=== PATIENT | male | born 1985 | race African-American/Black ===

== ENCOUNTER 2017-01-28 13:22 | Emergency (ER) | payer BC, OTHER ==
[~2017-01-28] VITALS: Ht 182.9 cm; Wt 96.0 kg
[~2017-01-28 13:22] MED LIST: HYDR12.56 PO; LISI-515 PO
[2017-01-28 13:24] VITALS: BP 204/148; PULSE 77; RESP 15; TEMP 98.8; O2SAT 98
[2017-01-28 13:44] VITALS: BP 214/136; PULSE 76; RESP 20; O2SAT 95
[2017-01-28 13:56] VITALS: BP 237/134; PULSE 80; RESP 18; O2SAT 98
[2017-01-28] MEDS ORDERED: ONDANSETRON HCL 4 MG/2 ML VIAL IV PUSH ONE (14:00)
[2017-01-28] MEDS ORDERED: cloNIDine HCL 0.2 MG TAB PO ONE (14:00)
[2017-01-28] MEDS ORDERED: HYDROmorphone HCL PF 1 MG/ML VIAL IV PUSH ONE (14:00)
--- NOTE | 2017-01-28 14:04 | PD ---
HPI Chief Complaint: ENT Complaint Time Seen by Provider: 13:43 Travel History International Travel<30 days: No Contact w/Intl Traveler<30days: No Traveled to known affect area: No History of Present Illness HPI This 31-year-old male is complaining of sore throat. He went to an urgent care center and they put him on antibiotics but noted that he had very high blood pressure and recommended that he come here. Patient has a long history of hypertension since he age of 23. He has been on medications at time the past but has not been on them recently. He denies chest pain or shortness of breath. PFSH Past Medical History Cardiovascular Problems: Yes (HTN) Diminished Hearing: No Hypertension: Yes (UNTREATED) Immunizations Current: No Influenza Vaccination: No ?: Not Past Surgical History Surgical History: No Previous Surgery Social History Alcohol Use: No Tobacco Use: No Substance Use: No Allergies-Medications (Allergen,Severity, Reaction): Coded Allergies: No Known Allergies (Unverified , 01/28/17) Reported Meds & Prescriptions Reported Meds & Active Scripts Active No Active Prescriptions or Reported Medications Review of Systems General / Constitutional: No: Fever Eyes: No: Diploplia HENT: Positive: Sore Throat, No: Headaches Cardiovascular: No: Chest Pain or Discomfort, Palpitations Respiratory: No: Cough, Shortness of Breath Gastrointestinal: No: Nausea, Vomiting Genitourinary: No: Urgency, Frequency Musculoskeletal: No: Myalgias, Arthralgias Skin: No Rash, No Itching Neurologic: No: Weakness Hematologic/Lymphatic: No: Easy Bruising Physical Exam Narrative GENERAL: Well-developed male blood pressure is 225/115 SKIN: Focused skin assessment warm/dry. HEAD: Atraumatic. Normocephalic. EYES: Pupils equal and round. No scleral icterus. No injection or drainage. ENT: No nasal bleeding or discharge. Mucous membranes pink and moist. Posterior pharynx is erythematous NECK: Trachea midline. No JVD. CARDIOVASCULAR: Regular rate and rhythm. No murmur appreciated. RESPIRATORY: No accessory muscle use. Clear to auscultation. Breath sounds equal bilaterally. GASTROINTESTINAL: Abdomen soft, non-tender, nondistended. Hepatic and splenic margins not palpable. MUSCULOSKELETAL: No obvious deformities. No clubbing. No cyanosis. No edema. NEUROLOGICAL: Awake and alert. No obvious cranial nerve deficits. Motor grossly within normal limits. Normal speech. PSYCHIATRIC: Appropriate mood and affect; insight and judgment normal. Data Data Last Documented VS Vital Signs Date Time Temp Pulse Resp B/P Pulse Ox O2 Delivery O2 Flow Rate FiO2 01/28/17 15:04 78 18 237/122 96 Room Air 01/28/17 13:24 98.8 Orders Complete Blood Count With Diff (01/28/17 13:58) Basic Metabolic Panel (Bmp) (01/28/17 13:58) Ua Includes Microscopic (01/28/17 13:58) Clonidine (Catapres) (01/28/17 14:00) Ondansetron Inj (Zofran Inj) (01/28/17 14:00) Hydromorphone Pf Inj (Dilaudid Pf Inj) (01/28/17 14:00) Clonidine (Catapres) (01/28/17 15:15) Amlodipine (Norvasc) (01/28/17 15:15) Labs Laboratory Tests Test 01/28/17 01/28/17 14:08 14:19 White Blood Count 6.3 TH/MM3 Red Blood Count 4.67 MIL/MM3 Hemoglobin 13.5 GM/DL Hematocrit 40.8 % Mean Corpuscular Volume 87.4 FL Mean Corpuscular Hemoglobin 29.0 PG Mean Corpuscular Hemoglobin 33.2 % Concent Red Cell Distribution Width 13.8 % Platelet Count 180 TH/MM3 Mean Platelet Volume 8.9 FL Neutrophils (%) (Auto) 65.6 % Lymphocytes (%) (Auto) 20.1 % Monocytes (%) (Auto) 10.7 % Eosinophils (%) (Auto) 3.1 % Basophils (%) (Auto) 0.5 % Neutrophils # (Auto) 4.1 TH/MM3 Lymphocytes # (Auto) 1.3 TH/MM3 Monocytes # (Auto) 0.7 TH/MM3 Eosinophils # (Auto) 0.2 TH/MM3 Basophils # (Auto) 0.0 TH/MM3 CBC Comment DIFF FINAL Differential Comment Sodium Level 142 MEQ/L Potassium Level 3.4 MEQ/L Chloride Level 105 MEQ/L Carbon Dioxide Level 29.9 MEQ/L Anion Gap 7 MEQ/L Blood Urea Nitrogen 20 MG/DL Creatinine 1.70 MG/DL Estimat Glomerular Filtration 58 ML/MIN Rate Random Glucose 96 MG/DL Calcium Level 9.0 MG/DL Urine Collection Type CLEAN CATCH Urine Color YELLOW Urine Turbidity CLEAR Urine pH 6.0 Urine Specific [place] 1.015 Urine Protein 100 mg/dL Urine Glucose (UA) NEG mg/dL Urine Ketones NEG mg/dL Urine Occult Blood NEG Urine Nitrite NEG Urine Bilirubin NEG Urine Leukocyte Esterase NEG Urine RBC 0-3 /hpf Urine WBC 0-2 /hpf Urine Squamous Epithelial 0-5 /hpf Cells Urine Collection Time 14:19 MDM Medical Decision Making Medical Screen Exam Complete: Yes Emergency Medical Condition: Yes Medical Record Reviewed: Yes Differential Diagnosis Differential includes hypertension, renal insufficiency, Narrative Course Lab work was checked. He does have some renal insufficiency which has been present on previous visits. He has been given clonidine 0.2 with minimal response. Subsequently been given 0.1 of clonidine and 10 mg of Norvasc. Again there has been minimal response. Further treatment and disposition will be determined by oncoming physician Diagnosis Primary Impression: Hypertension Scripts No Active Prescriptions or Reported Meds Donald Cobian MD January 28, 2017 14:04
[2017-01-28 14:14] LABS: AUTOMATED NEUTROPHIL # 4.1 TH/MM3 (1.8-7.7); BASOPHIL % 0.5 % (0.0-2.0); EOSINOPHIL # 0.2 TH/MM3 (0-0.4); EOSINOPHIL % 3.1 % (0.0-4.0); HEMATOCRIT 40.8 % (39.0-51.0); HEMO FLAGS DIFF FINAL; LYMPH % 20.1 % (9.0-44.0); LYMPHOCYTE # 1.3 TH/MM3 (1.0-4.8); MEAN CELL VOLUME 87.4 FL (80.0-100.0); MEAN CORPUSCULAR HGB CONC 33.2 % (32.0-36.0); MONO % 10.7 % (0.0-8.0); NEUT % 65.6 % (16.0-70.0); PLATELET COUNT 180 TH/MM3 (150-450); RED BLOOD COUNT 4.67 MIL/MM3 (4.50-5.90); RED CELL DISTRIBUTION WIDTH 13.8 % (11.6-17.2); WHITE BLOOD COUNT 6.3 TH/MM3 (4.0-11.0)
[2017-01-28 14:25] LABS: BLOOD, URINE NEG (NEG); GLUCOSE,URINE NEG (NEG); KETONE, URINE NEG (NEG); NITRITE,URINE NEG (NEG)
[2017-01-28 14:26] LABS: POTASSIUM 3.4 MEQ/L (3.5-5.1)
[2017-01-28 14:29] LABS: BICARBONATE 29.9 MEQ/L (21.0-32.0)
[2017-01-28 14:34] LABS: METHOD OF COLLECTION CLEAN CATCH; RBC, URINE 0-3 /hpf (0-3); SQUAMOUS EPITHELIAL CELL URINE 0-5 /hpf (0-5); URINE COLOR YELLOW (YELLW/STRAW); WBC, URINE 0-2 /hpf (0-5)
[2017-01-28 15:04] VITALS: BP 237/122; PULSE 78; RESP 18; O2SAT 96
[2017-01-28] MEDS ORDERED: cloNIDine HCL 0.1 MG TAB PO ONE (15:15)
[2017-01-28] MEDS ORDERED: niCARdipine INJ 25 MG in SODIUM CHLOR 0.9% 250 ML INJ 250 ML IV SCH (16:15)
[2017-01-28 16:21] VITALS: BP 179/115; PULSE 70; RESP 18; O2SAT 99
[2017-01-28] MEDS ORDERED: LIDOCAINE VISCOUS 2% SOLN 15 ML UDC PO ONE (16:30)
[2017-01-28] MEDS ORDERED: hydrALAZINE HCL 25 MG TAB PO ONE (16:30)
[2017-01-28] MEDS ORDERED: ALUMINUM/MAGNESIUM/SIMETH 30 ML CUP PO ONE (16:30)
[2017-01-28] MEDS ORDERED: HYDR25TA5 PO (17:17)
[2017-01-28] MEDS ORDERED: LISI-515 PO (17:17)
[2017-01-28] MEDS ORDERED: [UNRECOGNIZED DRUG - OTHER] PO (17:21)
--- NOTE | 2017-01-28 17:22 | PD ---
Data Data Last Documented VS Vital Signs Date Time Temp Pulse Resp B/P Pulse Ox O2 Delivery O2 Flow Rate FiO2 01/28/17 16:21 70 18 179/115 99 Room Air 01/28/17 13:24 98.8 Orders Complete Blood Count With Diff (01/28/17 13:58) Basic Metabolic Panel (Bmp) (01/28/17 13:58) Ua Includes Microscopic (01/28/17 13:58) Clonidine (Catapres) (01/28/17 14:00) Ondansetron Inj (Zofran Inj) (01/28/17 14:00) Hydromorphone Pf Inj (Dilaudid Pf Inj) (01/28/17 14:00) Clonidine (Catapres) (01/28/17 15:15) Amlodipine (Norvasc) (01/28/17 15:15) Nicardipine Inj (Cardene Inj) (01/28/17 16:15) Hydralazine (Apresoline) (01/28/17 16:30) Al-Mag Hy-Si 40-40-4 Mg/Ml Liq (Mag-Al P (01/28/17 16:30) Lidocaine 2% Viscous (Xylocaine 2% Visco (01/28/17 16:30) Acetamin-Hydrocod 325-5 Mg ([place] 5-325 (01/28/17 17:30) Labs Laboratory Tests Test 01/28/17 01/28/17 14:08 14:19 White Blood Count 6.3 TH/MM3 Red Blood Count 4.67 MIL/MM3 Hemoglobin 13.5 GM/DL Hematocrit 40.8 % Mean Corpuscular Volume 87.4 FL Mean Corpuscular Hemoglobin 29.0 PG Mean Corpuscular Hemoglobin 33.2 % Concent Red Cell Distribution Width 13.8 % Platelet Count 180 TH/MM3 Mean Platelet Volume 8.9 FL Neutrophils (%) (Auto) 65.6 % Lymphocytes (%) (Auto) 20.1 % Monocytes (%) (Auto) 10.7 % Eosinophils (%) (Auto) 3.1 % Basophils (%) (Auto) 0.5 % Neutrophils # (Auto) 4.1 TH/MM3 Lymphocytes # (Auto) 1.3 TH/MM3 Monocytes # (Auto) 0.7 TH/MM3 Eosinophils # (Auto) 0.2 TH/MM3 Basophils # (Auto) 0.0 TH/MM3 CBC Comment DIFF FINAL Differential Comment Sodium Level 142 MEQ/L Potassium Level 3.4 MEQ/L Chloride Level 105 MEQ/L Carbon Dioxide Level 29.9 MEQ/L Anion Gap 7 MEQ/L Blood Urea Nitrogen 20 MG/DL Creatinine 1.70 MG/DL Estimat Glomerular Filtration 58 ML/MIN Rate Random Glucose 96 MG/DL Calcium Level 9.0 MG/DL Urine Collection Type CLEAN CATCH Urine Color YELLOW Urine Turbidity CLEAR Urine pH 6.0 Urine Specific [place] 1.015 Urine Protein 100 mg/dL Urine Glucose (UA) NEG mg/dL Urine Ketones NEG mg/dL Urine Occult Blood NEG Urine Nitrite NEG Urine Bilirubin NEG Urine Leukocyte Esterase NEG Urine RBC 0-3 /hpf Urine WBC 0-2 /hpf Urine Squamous Epithelial 0-5 /hpf Cells Urine Collection Time 14:19 MDM Medical Record Reviewed: Yes Supervised Visit with ALPHONSO: No Narrative Course CBC & BMP Diagram 01/28/17 14:08 Urinalysis shows no UTI Diastolic hypertension has been observed with every single measurement since he first came here almost a year ago to the day. He is hypertension is more or less within range for him. We'll prescribe a 2 week course of antihypertensives. The patient was counseled in some detail and at some length regarding necessity of prompt follow-up and strict blood pressure control. Pt verbalized understanding though his primary concern was sore throat. Diagnosis Primary Impression: Hypertension Qualified Code: I10 - Essential hypertension Additional Impression: Pharyngitis Qualified Code: J02.9 - Pharyngitis, unspecified etiology Referrals: Jacey Strickland MD call for appointment Mark Catherine (Vladimir) call for appointment Additional Instruction: You have a choice when it comes to health care, and we are glad that you chose [facility]. Hopefully, we have met your expectations on today's visit. You are welcome to return to [facility] at any time, as we are committed to meeting the health care needs of our community. Med/Other Pt SpecificInfo: Prescription(s) given Scripts Hydrocodone-Acetaminophen Liq (Lortab Liq)10-300 Mg/15 Ml Elix15 Ml PO Q6H PRN ( SORE THROAT) #10 ML Ref 0 Prov:Venkata Hoffmann MD 01/28/17 Menthol Lozenge (Ricola Lozenge)1 Loz1 Lozenge PO Q3H PRN (SORE THROAT) #1 BOX Ref 0 Prov:Venkata Hoffmann MD 01/28/17 Hydrochlorothiazide 25 Mg Tab25 Mg PO DAILY #15 TAB Ref 0 Prov:Venkata Hoffmann MD 01/28/17 Lisinopril 20 Mg Tab20 Mg PO DAILY #15 TAB Ref 0 Prov:Venkata Hoffmann MD 01/28/17 Disposition: 01 DISCHARGE HOME Condition: Stable Venkata Hoffmann MD January 28, 2017 17:22
[2017-01-28] MEDS ORDERED: HYDR1ELX PO (17:26)
[2017-01-28 17:30] VITALS: BP 189/99; PULSE 87; RESP 18; O2SAT 99
[2017-01-28] MEDS ORDERED: ACETAMINOPHEN/HYDROcodone 325 MG/5 MG TAB PO ONE (17:30)
== END 2017-01-28 17:35 | disposition home or self-care (01) ==
LOC: PHED 13:22
DX: J02.9 Acute pharyngitis, unspecified (principal); I10 Essential (primary) hypertension
CPT/HCPCS: 80048; 81001; 85025; 96374; 96375; 99283; J1170; J2405

== ENCOUNTER 2017-04-20 23:14 | Emergency (ER) | payer OTHER ==
[~2017-04-20] VITALS: Ht 182.9 cm; Wt 95.5 kg
[~2017-04-20 23:14] MED LIST changes: -HYDR12.56 PO; +HYDR1ELX PO; +HYDR25TA5 PO; +[UNRECOGNIZED DRUG - OTHER] PO
[2017-04-20 23:16] VITALS: BP 183/113; PULSE 67; RESP 16; TEMP 98.4; O2SAT 98
--- NOTE | 2017-04-21 01:02 | PD ---
HPI Chief Complaint: Complaint Time Seen by Provider: 01:02 Travel History International Travel<30 days: No Contact w/Intl Traveler<30days: No Traveled to known affect area: No History of Present Illness HPI 31-year-old male presents to emergency department for evaluation of small bumps on his penis. Patient believes he may have an STD. He reports being in a monogamous relationship and not using condoms when he has intercourse with his girlfriend, but does not wish to share other experiences at this time. States about one week ago he had that he felt looked like a "Bonaparte" on the shaft of his penis but it was not painful. He states that it resolved on its own and now the skin is just slightly discolored. Denies any urinary symptoms. No penile discharge. No abdominal pain, nausea, vomiting. No fever or chills. He has no other symptoms to report. PFSH Past Medical History Medical History: Denies Significant Hx Diminished Hearing: No Hypertension: Yes (UNTREATED) Immunizations Current: No Social History Alcohol Use: No Tobacco Use: No Substance Use: No Allergies-Medications (Allergen,Severity, Reaction): Coded Allergies: No Known Allergies (Unverified , 01/28/17) Reported Meds & Prescriptions Reported Meds & Active Scripts Active Ricola Lozenge (Menthol Lozenge) 1 Fouzia 1 Lozenge PO Q3H PRN Hydrochlorothiazide 25 Mg Tab 25 Mg PO DAILY Lisinopril 20 Mg Tab 20 Mg PO DAILY Review of Systems Except as stated in HPI: all other systems reviewed are Neg Physical Exam Narrative GENERAL: Well-nourished, well-developed male patient in no acute distress SKIN: Focused skin assessment warm/dry. HEAD: Normocephalic. EYES: No scleral icterus. No injection or drainage. NECK: Supple, trachea midline. No JVD or lymphadenopathy. CARDIOVASCULAR: Regular rate and rhythm without murmurs, gallops, or rubs. RESPIRATORY: Breath sounds equal bilaterally. No accessory muscle use. GASTROINTESTINAL: Abdomen soft, non-tender, nondistended. GENITOURINARY: UNCircumcised. Testes descended bilaterally without evidence of rotation. MICRO papular lesions along the distal lateral aspect of the penile shaft. Near the base of the shaft on the left side is a lightened area that appears to be scar from the healed lesion that the patient was talking about that was painless that appeared last week. Or erythema. No urethral discharge. MUSCULOSKELETAL: No cyanosis, or edema. BACK: Nontender without obvious deformity. No CVA tenderness. Data Data Last Documented VS Vital Signs Date Time Temp Pulse Resp B/P Pulse Ox O2 Delivery O2 Flow Rate FiO2 04/20/17 23:16 98.4 67 16 183/113 98 Room Air Orders Gc And Chlamydia Pcr (04/21/17 01:02) Rapid Plasmin Reagin Screen (04/21/17 01:02) Herpes Simplex Virus Culture (04/21/17 01:02) Penicil G Steve Inj (Bicillin L-A Inj) (04/21/17 02:00) Labs Laboratory Tests Test 04/21/17 01:15 Chlamydia trachomatis DNA NOT DETECTED (PCR) Neisseria gonorrhoeae DNA NOT DETECTED (PCR) MDM Medical Decision Making Medical Screen Exam Complete: Yes Emergency Medical Condition: Yes Medical Record Reviewed: Yes Differential Diagnosis Herpes versus syphilis versus other STD versus contact dermatitis versus friction rub versus latex sensitivity Narrative Course 31-year-old male presents to emergency department for evaluation. Patient appears without distress. Physical exam is more consistent with a friction rub however pustules are concerning for herpes and in the patient's history of a painless sore or lesion grows concern for syphilis. GC PCR, herpetic micro-, and RPR all sent for further evaluation. Patient is counseled on safe sex practices. He agrees to return immediately with any acute worsening of symptoms. Diagnosis Primary Impression: Penile lesion Referrals: Primary Care Physician Patient Instructions: General Instructions, Safe Sex (ED), Syphilis (ED) Additional Instructions: It is recommended That you practice safe sex, utilize condom prophylaxis Follow-up with your primary care provider Return immediately with any acute worsening of symptoms Med/Other Pt SpecificInfo: No Change to Meds Disposition: 01 DISCHARGE HOME Condition: Stable GalindoPaola weeksmilan LIAO Apr 21, 2017 01:02
[2017-04-21] MEDS ORDERED: PENICILLIN G BENZATHINE 2,400,000 UNITS/4 ML SYRINGE IM ONE (01:15)
[2017-04-21] MEDS ORDERED: PENICILLIN G BENZATHINE 1,200,000 UNITS/2 ML SYRINGE IM ONE ×3 (01:15→01:45)
[2017-04-21] MEDS ORDERED: PENICIL G BENZ INJ 600,000 UNITS/ML SYR IM ONE (02:00)
[2017-04-21 12:05] LABS: CHLAMYDIA PCR NOT DETECTED (NOT DETECT); NEISSERIA PCR NOT DETECTED (NOT DETECT)
== END 2017-04-21 02:41 | disposition home or self-care (01) ==
LOC: NEPD 23:14
DX: L98.8 Other specified disorders of the skin and subcutaneous tissue (principal); I10 Essential (primary) hypertension; Z20.2 Contact with and (suspected) exposure to infections with a predominantly sexual mode of transmission
CPT/HCPCS: 86592; 87255; 87491; 87591; 96372; 99284; J0561

== ENCOUNTER 2017-04-28 18:45 | Emergency (ER) | payer OTHER ==
[~2017-04-28 18:45] MED LIST changes: -HYDR1ELX PO
[2017-04-28 18:47] VITALS: BP 221/108; PULSE 86; RESP 16; TEMP 98.5; O2SAT 98
[2017-04-28] MEDS ORDERED: VALT1TAB PO (19:19)
--- NOTE | 2017-04-28 19:20 | PD ---
HPI Chief Complaint: Medical Clearance Time Seen by Provider: 19:09 Travel History International Travel<30 days: No Contact w/Intl Traveler<30days: No Traveled to known affect area: No History of Present Illness HPI She is a 31-year-old male presents emergency department after he was called back for abnormal lab testing. Patient was seen here recently in emergency department with penile lesion. His laboratory test resulted positive for herpes simplex virus and he was called and told to return to the emergency department. Patient states that he has been feeling the same, the penile lesion is still there, unchanged. PFSH Past Medical History Diminished Hearing: No Hypertension: Yes (UNTREATED) Immunizations Current: No Social History Alcohol Use: No Tobacco Use: No Substance Use: No Allergies-Medications (Allergen,Severity, Reaction): Coded Allergies: No Known Allergies (Unverified , 01/28/17) Reported Meds & Prescriptions Reported Meds & Active Scripts Active Valtrex (Valacyclovir HCl) 1 Gm Tab 1,000 Mg PO TID Ricola Lozenge (Menthol Lozenge) 1 [place]ouzia 1 Lozenge PO Q3H PRN Hydrochlorothiazide 25 Mg Tab 25 Mg PO DAILY Lisinopril 20 Mg Tab 20 Mg PO DAILY Review of Systems Except as stated in HPI: all other systems reviewed are Neg Physical Exam Narrative GENERAL: Well-appearing male in no acute distress SKIN: Focused skin assessment warm/dry. HEAD: Normocephalic. EYES: No scleral icterus. No injection or drainage. ENT: Mucous membranes pink and moist. NECK: Supple CARDIOVASCULAR: Regular rate and rhythm. RESPIRATORY: No accessory muscle use. NEUROLOGICAL: Awake and alert. Normal speech. PSYCHIATRIC: Appropriate mood and affect; insight and judgment normal. Data Data Last Documented VS Vital Signs Date Time Temp Pulse Resp B/P Pulse Ox O2 Delivery O2 Flow Rate FiO2 04/28/17 18:47 98.5 86 16 221/108 98 MDM Medical Decision Making Medical Screen Exam Complete: Yes Emergency Medical Condition: Yes Medical Record Reviewed: Yes Differential Diagnosis 31-year-old male here for abnormal laboratory testing, positive herpes simplex virus from penile lesion culture. Narrative Course Patient informed of results. Given prescription for Valtrex. Notably hypertensive, has history of 4 drug HTN. Blood pressure normalized in ED, patient informed to follow-up with primary care provider for blood pressure recheck. 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 Follow-up with primary care provider in one week for blood pressure check. Med/Other Pt SpecificInfo: Prescription(s) given Scripts Valacyclovir (Valtrex)1 Gm Tab1,000 Mg PO TID #90 TAB Ref 0 Prov:Linda Veronica MD 04/28/17 Disposition: 01 DISCHARGE HOME Condition: Stable Linda Veronica MD Apr 28, 2017 19:20
[2017-04-28 19:38] VITALS: BP 174/114; PULSE 59; RESP 18; O2SAT 96
[2017-04-28] MEDS ORDERED: AMLO5TAB2 PO (19:39)
[2017-04-28] MEDS ORDERED: METO50TA PO (19:39)
== END 2017-04-28 20:00 | disposition home or self-care (01) ==
LOC: NEPE 18:45
DX: A60.01 Herpesviral infection of penis (principal); I10 Essential (primary) hypertension
CPT/HCPCS: 99283

== ENCOUNTER 2017-10-04 15:14 | Emergency (ER) | payer SELFPAY ==
[~2017-10-04] VITALS: Ht 182.9 cm; Wt 97.5 kg
[~2017-10-04 15:14] MED LIST changes: +AMLO5TAB2 PO; +METO50TA PO; +VALT1TAB PO; -[UNRECOGNIZED DRUG - OTHER] PO
[2017-10-04 15:15] VITALS: BP 227/139; PULSE 83; RESP 18; TEMP 99.1; O2SAT 97
[2017-10-04 16:01] LABS: AUTOMATED NEUTROPHIL # 1.8 TH/MM3 (1.8-7.7); BASOPHIL % 0.8 % (0.0-2.0); EOSINOPHIL # 0.2 TH/MM3 (0-0.4); EOSINOPHIL % 3.9 % (0.0-4.0); HEMATOCRIT 40.6 % (39.0-51.0); LYMPHOCYTE # 1.6 TH/MM3 (1.0-4.8); MEAN CELL VOLUME 89.1 FL (80.0-100.0); MEAN CORPUSCULAR HEMOGLOBIN 30.8 PG (27.0-34.0); MEAN CORPUSCULAR HGB CONC 34.6 % (32.0-36.0); MEAN PLATELET VOLUME 9.6 FL (7.0-11.0); MONO % 12.6 % (0.0-8.0); MONOCYTE # 0.5 TH/MM3 (0-0.9); NEUT % 44.7 % (16.0-70.0); PLATELET COUNT 152 TH/MM3 (150-450); RED BLOOD COUNT 4.56 MIL/MM3 (4.50-5.90); WHITE BLOOD COUNT 4.1 TH/MM3 (4.0-11.0)
[2017-10-04 16:13] LABS: INTERNATIONAL NORMALIZED RATIO 1.1 RATIO
[2017-10-04 16:24] LABS: TROPONIN I LESS THAN 0.02 NG/ML (0.02-0.05)
--- NOTE | 2017-10-04 16:25 | RADRPT ---
EXAM DATE/TIME: 10/04/2017 16:10 [facility] COMPARISON: No previous studies available for comparison. INDICATIONS : Chest pain and dyspnea. MEDICAL HISTORY : Hypertension. SURGICAL HISTORY : None. ENCOUNTER: Initial ACUITY: 1 day PAIN SCORE: 8/10 LOCATION: middle chest. FINDINGS: PA and lateral views of the chest demonstrate the lungs to be symmetrically aerated without evidence of mass, infiltrate or effusion. The cardiomediastinal contours are unremarkable. Osseous structure s are intact. CONCLUSION: No acute disease. Omar Mosqudea MD on October 04, 2017 at 16:22 Board Certified Radiologist. This report was verified electronically.
[2017-10-04 16:29] LABS: BICARBONATE 26.8 MEQ/L (21.0-32.0); BLOOD UREA NITROGEN 23 MG/DL (7-18); CALCIUM 8.8 MG/DL (8.5-10.1); CHLORIDE 106 MEQ/L (98-107); CREATININE 1.89 MG/DL (0.60-1.30); GLOMERULAR FILTRATION RATE 51 ML/MIN (>89); GLUCOSE,RANDOM 100 MG/DL (74-106); SODIUM (NA) 139 MEQ/L (136-145)
--- NOTE | 2017-10-04 17:51 | PD ---
HPI Chief Complaint: Chest Pain Stated Complaint: CHEST PAIN Time Seen by Provider: 17:48 Travel History International Travel<30 days: No Contact w/Intl Traveler<30days: No Known affected area: No History of Present Illness HPI 31 year old male presents tot he emergency department for evaluation of chest pain and shortness of breath. Patient states his chest pain radiates up the throat. Deep breathing exacerbates the pain, rest helps alleviate the pain. Current pain is 3/10. Moderate severity. History Social History Alcohol Use: No Tobacco Use: No Allergies-Medications (Allergen,Severity, Reaction): Coded Allergies: No Known Allergies (Unverified , 01/28/17) Reported Meds & Prescriptions Reported Meds & Active Scripts Active Valtrex (Valacyclovir HCl) 1 Gm Tab 1,000 Mg PO TID Hydrochlorothiazide 25 Mg Tab 25 Mg PO DAILY Lisinopril 20 Mg Tab 20 Mg PO DAILY Reported Amlodipine (Amlodipine Besylate) 5 Mg Tab 5 Mg PO DAILY Metoprolol Tartrate 50 Mg Tab 50 Mg PO BID Review of Systems Except as stated in HPI: all other systems reviewed are Neg Physical Exam Exam Limitations: Left AMA Narrative GENERAL: Well developed, well nourished male patient. Ambulatory. SKIN: Warm and dry. HEAD: Normocephalic. Atraumatic. EYES: No scleral icterus. No injection or drainage. RESPIRATORY: No accessory muscle use. MUSCULOSKELETAL: No cyanosis, or edema. Data Data Last Documented VS Vital Signs Date Time Temp Pulse Resp B/P (MAP) Pulse Ox O2 Delivery O2 Flow Rate FiO2 10/04/17 15:15 99.1 83 18 227/139 (168) 97 Room Air Orders Orders Electrocardiogram (10/04/17 15:21) Basic Metabolic Panel (Bmp) (10/04/17 15:21) Ckmb (Isoenzyme) Profile (10/04/17 15:21) Complete Blood Count With Diff (10/04/17 15:21) Magnesium (Mg) (10/04/17 15:21) Prothrombin Time / Inr (Pt) (10/04/17 15:21) Act Partial Throm Time (Ptt) (10/04/17 15:21) Troponin I (10/04/17 15:21) Chest, Pa & Lat (10/04/17 15:21) CKMB (10/04/17 15:26) CKMB% (10/04/17 15:26) Labs Laboratory Tests Test 10/04/17 15:26 White Blood Count 4.1 TH/MM3 Red Blood Count 4.56 MIL/MM3 Hemoglobin 14.0 GM/DL Hematocrit 40.6 % Mean Corpuscular Volume 89.1 FL Mean Corpuscular Hemoglobin 30.8 PG Mean Corpuscular Hemoglobin Concent 34.6 % Red Cell Distribution Width 14.0 % Platelet Count 152 TH/MM3 Mean Platelet Volume 9.6 FL Neutrophils (%) (Auto) 44.7 % Lymphocytes (%) (Auto) 38.0 % Monocytes (%) (Auto) 12.6 % Eosinophils (%) (Auto) 3.9 % Basophils (%) (Auto) 0.8 % Neutrophils # (Auto) 1.8 TH/MM3 Lymphocytes # (Auto) 1.6 TH/MM3 Monocytes # (Auto) 0.5 TH/MM3 Eosinophils # (Auto) 0.2 TH/MM3 Basophils # (Auto) 0.0 TH/MM3 CBC Comment DIFF FINAL Differential Comment Prothrombin Time 11.0 SEC Prothromb Time International Ratio 1.1 RATIO Activated Partial Thromboplast Time 27.1 SEC Blood Urea Nitrogen 23 MG/DL Creatinine 1.89 MG/DL Random Glucose 100 MG/DL Calcium Level 8.8 MG/DL Magnesium Level 2.0 MG/DL Sodium Level 139 MEQ/L Potassium Level 3.7 MEQ/L Chloride Level 106 MEQ/L Carbon Dioxide Level 26.8 MEQ/L Anion Gap 6 MEQ/L Estimat Glomerular Filtration Rate 51 ML/MIN Total Creatine Kinase 449 U/L Creatine Kinase MB 1.7 NG/ML Creatine Kinase MB % 0.4 % Troponin I LESS THAN 0.02 NG/ML MDM Medical Decision Making Medical Screen Exam Complete: Yes Emergency Medical Condition: Yes Medical Record Reviewed: Yes Narrative Course 31 year old male presents to the emergency department for evaluation of chest pain/shortness of breath. Patient is initially seen in triage. Patient left before he went back to a medical bed or further work up could be completed. Patient left AMA. Diagnosis Primary Impression: Left against medical advice Additional Impression: Chest pain Qualified Codes: R07.9 - Chest pain, unspecified Disposition: 07 AGAINST MEDICAL ADVICE Aamnda Wilcox Oct 04, 2017 17:51
[2017-10-05] MEDS ORDERED: AMLO5TAB2 PO (02:50)
[2017-10-05] MEDS ORDERED: LISI-515 PO (02:50)
[2017-10-05] MEDS ORDERED: HYDR25TA5 PO (02:50)
[2017-10-05] MEDS ORDERED: METO50TA PO (02:50)
--- NOTE | 2017-10-05 15:58 | EKG ---
Date Performed: 10/04/2017 Time Performed: 15:36:10 PTAGE: 31 years EKG: Sinus rhythm WITH SINUS ARRHYTHMIA LEFT ATRIAL ENLARGEMENT NONSPECIFIC T-WAVE ABNORMALITY ABNORMAL ECG PREVIOUS TRACING : 02/29/2016 08.55 Since previous tracing, no significant change noted DOCTOR: Walker Walsh Interpretating Date/Time 10/05/2017 15:57:39
== END 2017-10-04 17:48 | disposition left against medical advice (07) ==
LOC: NETRI 15:14
DX: R07.9 Chest pain, unspecified (principal); R06.02 Shortness of breath; I10 Essential (primary) hypertension; R94.31 Abnormal electrocardiogram [ECG] [EKG]
CPT/HCPCS: 71046; 80048; 82550; 82552; 83735; 84484; 85025; 85610; 85730; 93005

== ENCOUNTER 2017-10-04 23:15 | Emergency (ER) | payer OTHER ==
[~2017-10-04] VITALS: Ht 182.9 cm; Wt 97.0 kg
[2017-10-04 23:35] VITALS: BP 204/123; PULSE 78; RESP 18; TEMP 98.2; O2SAT 97
[2017-10-04 23:55] VITALS: BP 196/115; PULSE 77; RESP 18; O2SAT 98
[2017-10-05] VITALS (8 sets, daily range): BP systolic 175–217; BP diastolic 105–143; PULSE 68–87; RESP 16; O2SAT 98–99
--- NOTE | 2017-10-05 01:43 | PD ---
HPI Chief Complaint: Chest Pain Time Seen by Provider: 01:27 Travel History International Travel<30 days: No Contact w/Intl Traveler<30days: No Traveled to known affect area: No History of Present Illness HPI Patient is a 31-year-old male with a history of chronic kidney disease as well as difficult to control hypertension presents emergency department for evaluation of chest tightness without radiation. Patient states his been tight for the past day and a half, he presented the emergency department but could not wait through long wait times and left without being seen. Patient states symptoms have gotten gradually worse. He states that he has not yet taken his blood pressure medication today and is do so to take at about 3:00 in the morning. He denies short of breath nausea vomiting history of heart disease smoking history family history of dialysis or family history of early heart disease. PFSH Past Medical History Cardiovascular Problems: Yes (HTN) Diminished Hearing: No Hypertension: Yes (UNTREATED) Immunizations Current: No Social History Alcohol Use: No Tobacco Use: No Substance Use: No Allergies-Medications (Allergen,Severity, Reaction): Coded Allergies: No Known Allergies (Unverified Adverse Reaction, Unknown, 10/04/17) Reported Meds & Prescriptions Reported Meds & Active Scripts Active Amlodipine (Amlodipine Besylate) 5 Mg Tab 5 Mg PO DAILY Metoprolol Tartrate 50 Mg Tab 50 Mg PO BID Hydrochlorothiazide 25 Mg Tab 25 Mg PO DAILY Lisinopril 20 Mg Tab 20 Mg PO DAILY Review of Systems Except as stated in HPI: all other systems reviewed are Neg Physical Exam Narrative GENERAL: Well-developed well-nourished, no obvious distress. SKIN: Focused skin assessment warm/dry. HEAD: Atraumatic. Normocephalic. EYES: Pupils equal and round. No scleral icterus. No injection or drainage. ENT: No nasal bleeding or discharge. Mucous membranes pink and moist. NECK: Trachea midline. No JVD. CARDIOVASCULAR: Regular rate and rhythm. No murmur appreciated. 2+ but equal pulses in all 4 extremities. RESPIRATORY: No accessory muscle use. Clear to auscultation. Breath sounds equal bilaterally. GASTROINTESTINAL: Abdomen soft, non-tender, nondistended. Hepatic and splenic margins not palpable. MUSCULOSKELETAL: No obvious deformities. No clubbing. No cyanosis. No edema. NEUROLOGICAL: Awake and alert. No obvious cranial nerve deficits. Motor grossly within normal limits. Normal speech. PSYCHIATRIC: Appropriate mood and affect; insight and judgment normal. Data Data Last Documented VS Vital Signs Date Time Temp Pulse Resp B/P (MAP) Pulse Ox O2 Delivery O2 Flow Rate FiO2 10/05/17 03:23 68 16 175/105 (128) 99 10/05/17 03:13 Room Air 10/04/17 23:35 98.2 Orders Orders Electrocardiogram (10/04/17 ) B-Type Natriuretic Peptide (10/05/17 01:40) Ckmb (Isoenzyme) Profile (10/05/17 01:40) Complete Blood Count With Diff (10/05/17 01:40) Comprehensive Metabolic Panel (10/05/17 01:40) Magnesium (Mg) (10/05/17 01:40) Prothrombin Time / Inr (Pt) (10/05/17 01:40) Act Partial Throm Time (Ptt) (10/05/17 01:40) Troponin I (10/05/17 01:40) Ecg Monitoring (10/05/17 01:40) Bilateral Bp Monitoring (10/05/17 01:40) Iv Access Insert/Monitor (10/05/17 01:40) Oximetry (10/05/17 01:40) Oxygen Administration (10/05/17 01:40) Sodium Chloride 0.9% Flush (Ns Flush) (10/05/17 01:45) Basic Metabolic Panel (Bmp) (10/05/17 01:40) Bilateral Bp Monitoring (10/05/17 01:40) Nitroglycerin Sl (Nitrostat Sl) (10/05/17 01:45) CKMB (10/05/17 02:00) CKMB% (10/05/17 02:00) Lisinopril (Prinivil) (10/05/17 03:00) Metoprolol Tartrate (Lopressor) (10/05/17 03:00) Amlodipine (Norvasc) (10/05/17 03:00) Hydrochlorothiazide (Hydrodiuril) (10/05/17 03:00) Ed Discharge Order (10/05/17 02:50) Labs Laboratory Tests Test 10/05/17 02:00 White Blood Count 4.8 TH/MM3 Red Blood Count 4.65 MIL/MM3 Hemoglobin 13.5 GM/DL Hematocrit 41.1 % Mean Corpuscular Volume 88.5 FL Mean Corpuscular Hemoglobin 29.1 PG Mean Corpuscular Hemoglobin Concent 32.9 % Red Cell Distribution Width 13.3 % Platelet Count 139 TH/MM3 Mean Platelet Volume 9.7 FL Neutrophils (%) (Auto) 65.1 % Lymphocytes (%) (Auto) 21.9 % Monocytes (%) (Auto) 9.6 % Eosinophils (%) (Auto) 2.9 % Basophils (%) (Auto) 0.5 % Neutrophils # (Auto) 3.2 TH/MM3 Lymphocytes # (Auto) 1.0 TH/MM3 Monocytes # (Auto) 0.5 TH/MM3 Eosinophils # (Auto) 0.1 TH/MM3 Basophils # (Auto) 0.0 TH/MM3 CBC Comment DIFF FINAL Differential Comment Prothrombin Time 10.8 SEC Prothromb Time International Ratio 1.1 RATIO Activated Partial Thromboplast Time 26.7 SEC Blood Urea Nitrogen 20 MG/DL Creatinine 1.60 MG/DL Random Glucose 95 MG/DL Total Protein 7.6 GM/DL Albumin 3.8 GM/DL Calcium Level 8.7 MG/DL Magnesium Level 2.1 MG/DL Alkaline Phosphatase 36 U/L Aspartate Amino Transf (AST/SGOT) 14 U/L Alanine Aminotransferase (ALT/SGPT) 17 U/L Total Bilirubin 0.7 MG/DL Sodium Level 138 MEQ/L Potassium Level 3.5 MEQ/L Chloride Level 105 MEQ/L Carbon Dioxide Level 26.6 MEQ/L Anion Gap 6 MEQ/L Estimat Glomerular Filtration Rate 62 ML/MIN Total Creatine Kinase 385 U/L Creatine Kinase MB 2.0 NG/ML Creatine Kinase MB % 0.5 % Troponin I 0.03 NG/ML B-Type Natriuretic Peptide 78 PG/ML [facility] Medical Decision Making Medical Screen Exam Complete: Yes Emergency Medical Condition: Yes Differential Diagnosis ACS, AMI, CHF unlikely, accelerated hypertension, renal artery stenosis, Narrative Course Patient roomed emergency department, significant elevated blood pressure, he states that he is going to have an establishment with a new primary care physician next week. He is due for his blood pressure medication. He was given nitroglycerin and this did have some effect on his blood pressure and completely relieved his chest tightness. Initial workup with the patient shows no acute abnormality on EKG troponin are basic labs. Patient does have elevation creatinine which appears to be about baseline. He is feeling better. Discussed with the patient that at age 31 is unlikely that he has coronary artery disease but given his history of hypertension certainly he is at increased risk. He was given a dose of his medications which she is due for, I suggested that he should stay in the hospital until his pain is completely resolved and blood pressure better controlled with the patient would like to go home and follow-up with his primary care physician. I discussed the risk of major adverse cardiac event including stroke heart attack and and permanent major or partial disability. Patient verbalized understanding and agreement still would like to go home. Refilled his blood pressure medication. Patient also did inform him that he did have an ultrasound of his kidneys in the past which was normal. Diagnosis Primary Impression: Chest pain Qualified Codes: R07.9 - Chest pain, unspecified Additional Impression: Accelerated hypertension Additional Instructions: Talk to your primary care physician. Ultrasound of kidneys, make sure you discussed her blood pressure with her primary care physician. If you chest discomfort worsens you're welcome to return to the emergency department at any time. Med/Other Pt SpecificInfo: Prescription(s) given Scripts Amlodipine (Amlodipine) 5 Mg Tab 5 MG PO DAILY for Blood Pressure Management, #30 TAB 0 Refills Prov: Kurtis Donis MD 10/05/17 Metoprolol Tartrate (Metoprolol Tartrate) 50 Mg Tab 50 MG PO BID, #60 TAB 0 Refills Prov: Kurtis Donis MD 10/05/17 Hydrochlorothiazide (Hydrochlorothiazide) 25 Mg Tab 25 MG PO DAILY, #30 TAB 0 Refills Prov: Kurtis Donis MD 10/05/17 Lisinopril (Lisinopril) 20 Mg Tab 20 MG PO DAILY, #30 TAB 0 Refills Prov: Kurtis Donis MD 10/05/17 Disposition: DISCHARGE HOME Condition: Stable Kurtis Donis MD Oct 05, 2017 01:43
[2017-10-05] MEDS ORDERED: SODIUM CHLORIDE 0.9% FLUSH 10 ML FLUSH IVF PRN (01:45)
[2017-10-05 02:06] LABS: AUTOMATED NEUTROPHIL # 3.2 TH/MM3 (1.8-7.7); BASOPHIL % 0.5 % (0.0-2.0); EOSINOPHIL # 0.1 TH/MM3 (0-0.4); EOSINOPHIL % 2.9 % (0.0-4.0); HEMATOCRIT 41.1 % (39.0-51.0); HEMOGLOBIN 13.5 GM/DL (13.0-17.0); LYMPH % 21.9 % (9.0-44.0); MEAN CELL VOLUME 88.5 FL (80.0-100.0); MEAN CORPUSCULAR HEMOGLOBIN 29.1 PG (27.0-34.0); MEAN CORPUSCULAR HGB CONC 32.9 % (32.0-36.0); MEAN PLATELET VOLUME 9.7 FL (7.0-11.0); MONO % 9.6 % (0.0-8.0); MONOCYTE # 0.5 TH/MM3 (0-0.9); NEUT % 65.1 % (16.0-70.0); PLATELET COUNT 139 TH/MM3 (150-450); RED BLOOD COUNT 4.65 MIL/MM3 (4.50-5.90); RED CELL DISTRIBUTION WIDTH 13.3 % (11.6-17.2); WHITE BLOOD COUNT 4.8 TH/MM3 (4.0-11.0)
[2017-10-05] MEDS: NITROGLYCERIN 0.4 MG SL 25 TABS/BTL SL SCH ×3 (02:06→02:27)
[2017-10-05 02:18] LABS: CHLORIDE 105 MEQ/L (98-107); SODIUM (NA) 138 MEQ/L (136-145)
[2017-10-05 02:20] LABS: INTERNATIONAL NORMALIZED RATIO 1.1 RATIO; PROTHROMBIN TIME - PATIENT 10.8 SEC (9.8-11.6)
[2017-10-05 02:21] LABS: ALBUMIN 3.8 GM/DL (3.4-5.0); BICARBONATE 26.6 MEQ/L (21.0-32.0); BLOOD UREA NITROGEN 20 MG/DL (7-18); CALCIUM 8.7 MG/DL (8.5-10.1); GLUCOSE,RANDOM 95 MG/DL (74-106); MAGNESIUM 2.1 MG/DL (1.5-2.5)
[2017-10-05 02:24] LABS: ALT (GPT) 17 U/L (12-78); AST (GOT) 14 U/L (15-37)
[2017-10-05 02:25] LABS: GLOMERULAR FILTRATION RATE 62 ML/MIN (>89)
[2017-10-05 02:26] LABS: TOTAL BILIRUBIN ADULT 0.7 MG/DL (0.2-1.0); TOTAL PROTEIN 7.6 GM/DL (6.4-8.2)
[2017-10-05 02:27] LABS: ALKALINE PHOSPHATASE 36 U/L (45-117)
[2017-10-05 02:29] LABS: TROPONIN I 0.03 NG/ML (0.02-0.05)
[2017-10-05] MEDS ORDERED: HYDR25TA5 PO (02:50)
[2017-10-05] MEDS ORDERED: AMLO5TAB2 PO (02:50)
[2017-10-05] MEDS ORDERED: LISI-515 PO (02:50)
[2017-10-05] MEDS ORDERED: METO50TA PO (02:50)
[2017-10-05] MEDS ORDERED: HYDROCHLOROTHIAZIDE 25 MG TAB PO ONE (03:00)
[2017-10-05] MEDS ORDERED: amLODIPine BESYLATE 5 MG TAB PO ONE (03:00)
[2017-10-05] MEDS ORDERED: LISINOPRIL 20 MG TAB PO ONE (03:00)
[2017-10-05] MEDS ORDERED: METOPROLOL TARTRATE 50 MG TAB PO ONE (03:00)
--- NOTE | 2017-10-05 15:59 | EKG ---
Date Performed: 10/04/2017 Time Performed: 23:26:49 PTAGE: 31 years EKG: Sinus rhythm NONSPECIFIC T-WAVE ABNORMALITY BORDERLINE ECG PREVIOUS TRACING : 10/04/2017 15.36 Since previous tracing, no significant change noted DOCTOR: Walker Walsh Interpretating Date/Time 10/05/2017 15:58:13
== END 2017-10-05 03:26 | disposition home or self-care (01) ==
LOC: PHED 23:15
DX: R07.9 Chest pain, unspecified (principal); I12.9 Hypertensive chronic kidney disease with stage 1 through stage 4 chronic kidney disease, or unspecified chronic kidney disease; N18.9 Chronic kidney disease, unspecified; Z79.899 Other long term (current) drug therapy
CPT/HCPCS: 80053; 82550; 82552; 83735; 83880; 84484; 85025; 85610; 85730; 93005